=== PATIENT | male | born 1945 | race Caucasian/White ===

== ENCOUNTER 2018-12-27 01:57 | Inpatient (IN) | payer MEDICARE ==
[2018-12-27] VITALS (11 sets, daily range): BP systolic 102–153; BP diastolic 32–70
[~2018-12-27] VITALS: Ht 170.2 cm; Wt 65.8 kg
[~2018-12-27 01:57] MED LIST: ADULT LOW DOSE81 MG PO; BAYER CHEWABLE81 MG PO; BP MEDICATION; CARDIZEM CD120 MG PO; DUONEB 2.5-0.5 M3 ML INH; KEPPRA 500 MG500 M1 PO; KEPPRA750 MG PO; LEVAQUIN 500 M500 M1 PO; LIPITOR 20 MG T20 M1 PO; NORVASC5 MG PO; PREDNISONE 10 M10 M1 PO; PREDNISONE 20 M20 MG PO; PROAIR HFA8.5 GM INH; PROMETH-CODEIN 65 ML PO; UNKNOWN CHOLESTEROL PO; VITAMIN B-1100 M1 PO
[2018-12-27 02:29] LABS: HEMOGLOBIN 13.5 gm/dL (14.0-18.0); MCH 31.6 pg (26.0-34.0); MCHC 34.7 g/dL (28.0-37.0); MCV 90.9 fL (80.0-100.0); MPV 7.7 fl. (7.2-11.1); NUCLEATED RBCS 0 /100WBC; PLATELET COUNT* 207 thou/uL (150-400); RBC 4.29 mil/uL (4.50-6.00); RDW-CV 13.7 % (10.5-14.5); WBC 10.8 thou/uL (4.0-11.0)
[2018-12-27] MEDS ORDERED: COZAAR 25 MG TA25 M1 PO (02:33)
[2018-12-27] MEDS ORDERED: MEN'S MULTIVIT1 EACH PO (02:34)
[2018-12-27] MEDS ORDERED: LITE COAT ASPI325 MG PO (02:34)
[2018-12-27 02:37] LABS: CALCIUM 8.8 mg/dL (8.5-10.1); CREATININE 2.1 mg/dL (0.6-1.3); POTASSIUM 4.5 mmol/L (3.5-5.1)
[2018-12-27 02:41] LABS: ALBUMIN 3.5 g/dL (3.4-5.0); TOTAL BILIRUBIN 0.3 mg/dL (<0.1-1.0); TOTAL PROTEIN 6.5 g/dL (6.4-8.2)
[2018-12-27 03:08] LABS: ABSOLUTE BASOPHILS 0.1 thou/uL (0.0-0.2); ABSOLUTE LYMPHOCYTES 0.3 thou/uL (0.8-5.3); ABSOLUTE MONOCYTES 0.1 thou/uL (0.0-1.2); ABSOLUTE NEUTROPHILS 10.3 thou/uL (1.6-8.1); PLATELET ESTIMATE ADEQUATE
[2018-12-27 05:31] LABS: URINE BILIRUBIN NEGATIVE (Negative); URINE BLOOD 3+ (Negative); URINE CLARITY CLEAR; URINE COLOR YELLOW; URINE GLUCOSE-RANDOM NEGATIVE (Negative); URINE KETONES NEGATIVE (Negative); URINE LEUKOCYTES-REFLEX NEGATIVE (Negative); URINE NITRITE-REFLEX NEGATIVE (Negative); URINE PROTEIN 1+ (Negative); URINE SPECIFIC GRAVITY >= 1.030 (1.005-1.030); URINE UROBILINOGEN 0.2 E.U./dl (0.2-1.0)
[2018-12-27 05:32] LABS: AMP/METHAMP Negative (Negative); BARBITURATES Negative (Negative); BENZODIAZEPINES Negative (Negative); COCAINE Negative (Negative); METHADONE Negative (Negative); OPIATES Negative (Negative); PCP Negative (Negative); THC POSITIVE (Negative)
[2018-12-27 05:33] LABS: SQUAMOUS 0-3 Few /LPF (0-3)
[2018-12-27 05:34] LABS: AMORPHOUS URATES Moderate /LPF (None Seen); BACTERIA-REFLEX 1-9 Few /HPF (None Seen); CASTS None Seen /LPF (None Seen); MUCUS 0-3 Light strn/LPF (None Seen); URINE RBC 3-10 Few /HPF (0-2); URINE WBC-REFLEX 0-5 Rare /HPF (0-5)
[2018-12-27 08:14] LABS: PCO2 30.6 mmHg (35.0-45.0); PO2 77.7 mmHg (75.0-100.0)
[2018-12-27 08:21] LABS: ABSOLUTE LYMPHOCYTES 0.4 thou/uL (0.8-5.3); ABSOLUTE MONOCYTES 0.5 thou/uL (0.0-1.2); ABSOLUTE NEUTROPHILS 9.1 thou/uL (1.6-8.1); BASOPHILS 0.2 %; HEMATOCRIT 33.9 % (42.0-52.0); LYMPHOCYTES 4.1 %; MCH 31.9 pg (26.0-34.0); MCHC 35.4 g/dL (28.0-37.0); MONOCYTES 5.1 %; MPV 7.1 fl. (7.2-11.1); NUCLEATED RBCS 0 /100WBC; PLATELET COUNT* 166 thou/uL (150-400); POLYS 90.6 %; RBC 3.77 mil/uL (4.50-6.00); RDW-CV 13.5 % (10.5-14.5)
[2018-12-27 08:31] LABS: MAGNESIUM 2.2 mg/dL (1.8-2.4); PHOSPHORUS* 2.2 mg/dL (2.5-4.9)
--- NOTE | 2018-12-27 10:32 | EKG ---
[place] [address] ELECTROCARDIOGRAM REPORT Name: LORA ALCANTARA Room: [address] ADM IN M.R.#: [id number] Admission: 12/27/18 Attend Phys: Delmer Ballard MD Discharge: Date of : 49 Report #: [id number] THIS REPORT FOR: //name// [facility] ED Test Date: 2018-12-27 Test Time: 02:10:49 Pat Name: LORA ALCANTARA Department: Room: [facility] Gender: M Service Center Coordinator: : 1945 Requested By: Nazia Flanagan Order Number: [id number] MD: Maged Zamudio Measurements Intervals [place] Rate: 82 P: 69 WI: 132 QRS: -28 QRSD: 108 T: 62 QT: 372 QTc: 435 Interpretive Statements Sinus rhythm Probable left ventricular hypertrophy Compared to ECG 03/09/2016 15:59:44 Atrial fibrillation no longer present Early repolarization no longer present Electronically Signed On 12-27-2018 10:32:34 PASTRY ARTIST by Maged Zamudio [email or web address] <ELECTRONICALLY SIGNED> By: Maged Zamudio MD, FAC 12/27/18 1032 9 Maged Zamudio MD, [facility] /EPI
[2018-12-27 14:10] LABS: HEMATOCRIT 30.2 % (42.0-52.0); HEMOGLOBIN 10.7 gm/dL (14.0-18.0)
--- NOTE | 2018-12-27 15:29 | CON ---
[address] [address] CONSULTATION Name: LORA ALCANTARA Room: [address] ADM IN M.R.#: [id number] Admission: 12/27/18 Attend Phys: Delmer Ballard MD Discharge: Date of : 49 Report #: [id number] THIS REPORT FOR: //name// CC: Delmer Ballard [facility] physician/PCP DICTATED BY: Gabriela ZAMORAP DATE OF SERVICE: 12/27/2018 The patient does not have a PCP. Please note at the time of this dictation, the patient was seen and physically examined by myself. REASON FOR CONSULTATION: Hematemesis. HISTORY OF PRESENT ILLNESS: This is a 73-year-old male who was brought to the Emergency Room via EMS in which the patient resides with his daughter. She found him in the bathroom having atonic-clonic seizures. She does not know how long it lasted, he does have a significant history of alcohol abuse. His daughter states he drinks about 3 bottles weekly, but she did not give us the size of the bottles or what actually he did drink. He does have a long-term history of seizures in the past that has been related to alcohol withdrawal as well. Most of the HPI is obtained from the chart that was obtained from the daughter secondary to the patient's very somnolent state at the present time. ALLERGIES: No known drug allergies. MEDICATIONS FROM HOME: Aspirin, multivitamin and Cozaar. PAST MEDICAL HISTORY: Seizure disorder, history of prior TIAs, hypertension, stroke and atrial fibrillation. PAST SURGICAL HISTORY: He had tonsils removed as a child. FAMILY HISTORY: Unknown. SOCIAL HISTORY: Still continues to smoke daily as well as tested positive for marijuana and has drank alcohol, although his alcohol level was below 10 upon admission this time. Daughter states that he had not had a drink in over a week. REVIEW OF SYSTEMS: Twelve-point review of systems is essentially negative except what [place] [address] CONSULTATION Name: LORA ALCANTARA Room: [address] IN ..#: [id number] Admission: 12/27/18 Attend Phys: Delmer Ballard MD Discharge: Date of : 49 Report #: [id number] PHYSICAL EXAMINATION: VITAL SIGNS: Temperature 36.4, pulse 84, respirations 16, blood pressure 156/70. HEART: Regular rate and rhythm. LUNGS: Diminished. ABDOMEN: Soft, positive bowel sounds in all 4 quadrants with no masses or tenderness noted. The patient is very somnolent and barely opens eyes to palpation. LABORATORY DATA: Hemoglobin is 12, white count is 10, platelets 166. LFTs are normal. B12 is 349. PT is 10. INR is 1. His GFR is only 34 and tested positive for THC on his urine screen. IMPRESSION: 1. Hematemesis. 2. Seizure disorder, likely related to DTs. 3. History of alcohol abuse. 4. History of atrial fibrillation. 5. Chronic kidney disease stage 3. PLAN: 1. EGD today with Dr. Morris. 2. Protonix drip. 3. Further recommendations to be made once the procedure has been performed. Thank you for allowing us to participate in this patient's care. Please do not hesitate to call with any questions in regard to this consult. Agree with the above assessment and plan by Gabriela Chan <ELECTRONICALLY SIGNED> By: Keven Morris MD 12/27/18 1529 1006 [id number] Morris MD /nt
--- NOTE | 2018-12-27 18:57 | EEG ---
[address] [address] EEG STUDY REPORT Name: LORA ALCANTARA Room: [address] IN M.R.#: [id number] Admission: 12/27/18 Attend Phys: Delmer Ballard MD Discharge: Date of : 49 Report #: [id number] THIS REPORT FOR: //name// CC: Delmer Ballard [facility] physician/PCP DATE OF SERVICE: 12/27/2018 This patient is being evaluated for seizure. EEG was done by placing the electrode by standard 10-20 system of electrode placement. Both referential and sequential montages were used for recording. Background activity in this patient's EEG is about 7-8 Hz and 30 microvolts. It is a symmetrical activity. It is intermixed with theta range slowing on both sides. Photic stimulation was unremarkable. Throughout the record, no active epileptiform activity was noticed. IMPRESSION: This patient's EEG is intermixed with theta range slowing on both sides. There is a nonspecific abnormality, which can occur with dementia, encephalopathy, effect of psychotropic medication, etc. Clinical correlation is recommended. <ELECTRONICALLY SIGNED> By: Som Paz MD 12/27/18 1857 1224 [id number] Paz MD /nt
--- NOTE | 2018-12-27 18:57 | CON ---
[address] [address] CONSULTATION Name: LORA ALCANTARA Room: [address] ADM IN M.R.#: [id number] Admission: 12/27/18 Attend Phys: Delmer Ballard MD Discharge: Date of : 49 Report #: [id number] THIS REPORT FOR: //name// CC: Delmer Ballard [facility] physician/PCP DATE OF SERVICE: 12/27/2018 HISTORY OF PRESENT ILLNESS: This is a 73-year-old male patient who is unable to provide any history. No family member is here. The history is from the records. The patient was admitted after having an episode of grand mal seizure. He is known heavy alcohol drinker and stopped about 7 days ago. That is all the history, which is available. He also had some coffee ground emesis. He has a history of seizure disorder. He has a tonsil removed as a child. Apparently, according to the records, he has a history of atrial fibrillation, but when an EKG was done in the hospital, it demonstrated normal sinus rhythm. The patient is still confused and agitated. He required some sedation. REVIEW OF SYSTEMS: From the records. Apparently, he has a history of atrial fibrillation. That is all the history I can get from the record. One of the records indicates acute renal failure. This patient's creatinine has been high persistently as back as 2017, but this is the time it has been the highest during this admission. This is a relevant 14-point review of system. PAST MEDICAL HISTORY: Positive for possible TIA or stroke. FAMILY HISTORY: Unavailable. SOCIAL HISTORY: He smokes every day and drinks alcohol every day. He stopped drinking about 7 days ago. PHYSICAL EXAMINATION: Impossible. He does not cooperate. He does not open his eyes. He did get some sedation. His reflexes are hyper. Pupils look symmetrical. He does not appear to have respiratory difficulty. His blood pressure is 152/70, respiration is 16, pulse is 84, temperature is 97.6. LABORATORY DATA: White count is normal at 10. IMPRESSION: 1. Alcohol withdrawal seizure. 2. Encephalopathy because of multiple problems. 3. Does not appear to be any clinical sign of central nervous system infection. RECOMMENDATIONS: 1. We will check an EEG. 2. If he becomes cooperative, we will decide [place] [address] CONSULTATION Name: LORA ALCANTARA Room: [address] IN M.R.#: [id number] Admission: 12/27/18 Attend Phys: Delmer Ballard MD Discharge: Date of : 49 Report #: [id number] 3. Question of anticoagulation also needs to be discussed because of his atrial fibrillation. Presently, he is in withdrawal state and not much can be done except supportive care. Thank you very much for this referral. <ELECTRONICALLY SIGNED> By: Som Paz MD 12/27/18 1857 0948 [id number] Paz MD /xiomara
[2018-12-27 22:08] LABS: HEMATOCRIT 31.2 % (42.0-52.0)
[2018-12-28] VITALS (12 sets, daily range): BP systolic 107–165; BP diastolic 32–52
[2018-12-28 02:07] LABS: GLYCOHEMOGLOBIN (HGB A1C) 5.2 % (4.8-5.6)
[2018-12-28 04:39] LABS: HEMATOCRIT 30.7 % (42.0-52.0); HEMOGLOBIN 10.4 gm/dL (14.0-18.0); MCHC 33.8 g/dL (28.0-37.0); MCV 91.8 fL (80.0-100.0); MPV 7.5 fl. (7.2-11.1); RBC 3.34 mil/uL (4.50-6.00); RDW-CV 13.7 % (10.5-14.5); WBC 7.8 thou/uL (4.0-11.0)
[2018-12-28 04:53] LABS: CALCIUM 8.1 mg/dL (8.5-10.1); CREATININE 1.9 mg/dL (0.6-1.3); MAGNESIUM 2.1 mg/dL (1.8-2.4); POTASSIUM 3.8 mmol/L (3.5-5.1)
[2018-12-28 09:05] LABS: CHOLESTEROL 140 mg/dL (<200); HDL CHOLESTEROL 56 mg/dL (>40); LDL CHOLESTEROL 69 mg/dL (<100); TC:HDL 2.5 Ratio (Not establshd); TRIGLYCERIDE 77 mg/dL (<150); VLDL 15 mg/dL (<40)
[2018-12-28 09:06] LABS: SERUM ASSESSMENT Clear
[2018-12-29] VITALS: BP 169/56
[2018-12-29 04:00] VITALS: BP 120/60
[2018-12-29 08:36] VITALS: BP 166/53
[2018-12-29 12:00] VITALS: BP 155/50
[2018-12-29 15:48] VITALS: BP 161/55
[2018-12-29 20:00] VITALS: BP 164/87
[2018-12-30] VITALS: BP 139/78
[2018-12-30 08:06] VITALS: BP 150/53
[2018-12-30 15:42] VITALS: BP 130/71
[2018-12-30 20:00] VITALS: BP 152/53
[2018-12-31] VITALS: BP 133/44
[2018-12-31 07:32] VITALS: BP 141/42
[2018-12-31] MEDS ORDERED: B12INJ SUBQ (08:40)
[2018-12-31] MEDS ORDERED: OMEPRAZOLE40 MG PO (08:40)
[2018-12-31] MEDS ORDERED: HYDROXYZINE HCL25 M2 PO (08:40)
[2018-12-31] MEDS ORDERED: HYDROCHLOROTHIA25 M1 PO (08:40)
[2018-12-31] MEDS ORDERED: ELIQUIS5 MG PO (08:40)
[2018-12-31 08:46] LABS: CALCIUM 8.1 mg/dL (8.5-10.1); CREATININE 1.8 mg/dL (0.6-1.3); MAGNESIUM 1.6 mg/dL (1.8-2.4); POTASSIUM 3.2 mmol/L (3.5-5.1)
[2018-12-31 11:34] VITALS: BP 141/42
== END 2018-12-31 16:04 | DRG 177 ==
LOC: M.ERS 01:57 → M.2W 05:02 → M.TBA-ER 05:02 → M.ICU 05:02 → M.2W 12-28 15:12
PROVIDERS: Internal Medicine; Personal Emergency Response Attendant; ADMIT Internal Medicine
PROC: 02HV33Z Insertion of Infusion Device into Superior Vena Cava, Percutaneous Approach (ICD-10-PCS; principal; 2018-12-27)
PROC: 0DJ08ZZ Inspection of Upper Intestinal Tract, Via Natural or Artificial Opening Endoscopic (ICD-10-PCS; principal; 2018-12-27)
DX: J69.0 Pneumonitis due to inhalation of food and vomit (principal); K29.21 Alcoholic gastritis with bleeding; G92 Toxic encephalopathy; N17.0 Acute kidney failure with tubular necrosis; K29.81 Duodenitis with bleeding; K92.0 Hematemesis; F10.231 Alcohol dependence with withdrawal delirium; G25.9 Extrapyramidal and movement disorder, unspecified; G40.909 Epilepsy, unspecified, not intractable, without status epilepticus; I48.91 Unspecified atrial fibrillation; N18.3 Chronic kidney disease, stage 3 (moderate); F03.90 Unspecified dementia, unspecified severity, without behavioral disturbance, psychotic disturbance, mood disturbance, and anxiety; I12.9 Hypertensive chronic kidney disease with stage 1 through stage 4 chronic kidney disease, or unspecified chronic kidney disease; F17.210 Nicotine dependence, cigarettes, uncomplicated; E16.2 Hypoglycemia, unspecified; E86.9 Volume depletion, unspecified; F12.10 Cannabis abuse, uncomplicated; K44.9 Diaphragmatic hernia without obstruction or gangrene; E53.8 Deficiency of other specified B group vitamins; Z79.899 Other long term (current) drug therapy; Z86.73 Personal history of transient ischemic attack (TIA), and cerebral infarction without residual deficits